=== PATIENT | female | born 1985 | race Caucasian/White ===

== ENCOUNTER 2016-08-13 14:52 | Emergency (ER) | payer SELFPAY ==
[2016-08-13 15:41] VITALS: BP 104/58
--- NOTE | 2016-08-13 16:19 | RAD ---
INDICATION: Right ankle injury. TECHNIQUE: 3 views of the right ankle were obtained. FINDINGS: There is anterior soft tissue swelling. No fracture is seen. Joint spaces appear maintained. IMPRESSION: SOFT TISSUE SWELLING, NO FRACTURE IS SEEN.
--- NOTE | 2016-08-13 16:21 | RAD ---
INDICATION: Right foot injury. TECHNIQUE: 3 views of the right foot were obtained. FINDINGS: There is soft tissue swelling over the dorsal aspect of the foot. The bones are normal alignment. There is a faint radiolucent line present over the proximal metaphysis of the fourth metatarsal possibly representing a nondisplaced fracture. No other fractures are seen. IMPRESSION: POSSIBLE NONDISPLACED FRACTURE OF THE PROXIMAL FOURTH METATARSAL.
[2016-08-13] MEDS ORDERED: HYDROcodone/ACETAMIN 5-325 MG* 1 TAB PO ONE (17:04)
--- NOTE | 2016-08-13 17:15 | UC ---
Lower Extremity/Ankle HPI - HPI Summary HPI Summary: patient rolled her right ankle is now unable to bear weight. happened while walking today. - History of Current Complaint Chief Complaint: UCLowerExtremity Stated Complaint: RIGHT FOOT INJURY Time Seen by Provider: 08/13/16 15:39 Hx Obtained From: Patient Hx Last Menstrual Period: 07/30/16 ?: No Onset/Duration: Sudden Onset, Lasting Hours Severity Initially: Severe Severity Currently: Severe Aggravating Factor(s): Standing, Ambulation Alleviating Factor(s): Rest, Ice Able to Bear Weight: No - Allergies/Home Medications Allergies/Adverse Reactions: Allergies Allergy/AdvReac Type Severity Reaction Status Date / Time No Known Allergies Allergy Verified 08/13/16 15:41 PMH/Surg Hx/FS Hx/Imm Hx Previously Healthy: Yes Endocrine History Of: Denies: Diabetes, Thyroid Disease Cardiovascular History Of: Denies: Cardiac Disorders, Hypertension Respiratory History Of: Denies: COPD, Asthma GI/ History Of: Denies: Ulcer - Surgical History Surgical History: None - Family History Known Family History: Negative: Cardiac Disease, Hypertension - Social History Alcohol Use: None Substance Use Type: Heroin Smoking Status (MU): Heavy Every Day Tobacco Smoker Review of Systems Constitutional: Negative Skin: Negative Eyes: Negative ENT: Negative Respiratory: Negative Cardiovascular: Negative Gastrointestinal: Negative Genitourinary: Negative Motor: Negative Neurovascular: Negative Musculoskeletal: Arthralgia, Decreased ROM, Edema, Myalgia Neurological: Negative Psychological: Negative All Other Systems Reviewed And Are Negative: Yes Physical Exam Triage Information Reviewed: Yes Appearance: Well-Appearing, Well-Nourished, Pain Distress Vital Signs: Initial Vital Signs Temp 97 F 08/13/16 15:36 Pulse 76 08/13/16 15:36 Resp 16 08/13/16 15:36 BP 104/58 08/13/16 15:36 Pulse Ox 98 08/13/16 15:36 Vital Signs Reviewed: Yes Eye Exam: Normal Eyes: Positive: Conjunctiva Clear ENT Exam: Normal ENT: Positive: Hearing grossly normal, Pharynx normal, TMs normal Dental Exam: Normal Neck exam: Normal Respiratory Exam: Normal Respiratory: Positive: Chest non-tender, Lungs clear, Normal breath sounds Cardiovascular Exam: Normal Cardiovascular: Positive: RRR, No Murmur, Pulses Normal Abdominal Exam: Normal Abdomen Description: Positive: Nontender, No Organomegaly, Soft Bowel Sounds: Positive: Present Musculoskeletal: Positive: Strength Limited @ - in right ankle, ROM is limited due to pain, she is not weightbearing. edema along top of right foot and in the ankle Psychological Exam: Normal Skin Exam: Normal Lower Extremity Course/Dx - Course Course Of Treatment: hx obtained, exam performed, xray shows possible fracture of 4th proximal phalanx. post op shoe, yolis wrap, gel splint and crutches provided. - Differential Dx/Diagnosis Differential Diagnosis/HQI/PQRI: Contusion, Dislocation, Fracture (Closed), Sprain, Strain Provider Diagnoses: ankle sprain. metatarsal fracture Discharge - Discharge Plan Condition: Stable Disposition: HOME Patient Education Materials: SUSPECTED FRACTURE (ED) Referrals: Jenna Harris MD [Primary Care Provider] - Kike Whittaker MD [Medical Doctor] - Additional Instructions: Wear the yolis wrap and keep foot elevated for the next two days, ice every few hours. Use the prescription medication for the next few days and continue with 4-600 mg of Motrin every 4-6 hours. Use crutches and work back into weight bearing. You can follow up with orthopedics if you are not improving over the next week.
== END 2016-08-13 17:36 | disposition home or self-care (01) ==
LOC: UCCORT 14:52
DX: S93.401A Sprain of unspecified ligament of right ankle, initial encounter (principal); S92.344A Nondisplaced fracture of fourth metatarsal bone, right foot, initial encounter for closed fracture; X50.1XXA Overexertion from prolonged static or awkward postures, initial encounter; Y93.01 Activity, walking, marching and hiking; Y92.9 Unspecified place or not applicable; F17.210 Nicotine dependence, cigarettes, uncomplicated
CPT/HCPCS: 99213; G0463